=== PATIENT | female | born 1985 | race African-American/Black ===

== ENCOUNTER 2022-11-16 03:32 | Emergency (ER) | payer MEDICARE, MEDICAID ==
[~2022-11-16] VITALS: Ht 167.6 cm; Wt 87.0 kg
[2022-11-16] MEDS ORDERED: IBUPROFEN 600MG TABLET PO ONE (04:30)
[2022-11-16] MEDS ORDERED: IBUP-2029 MT (04:32)
[2022-11-16 04:43] VITALS: BP 129/67
== END 2022-11-16 05:48 | disposition home or self-care (01) ==
LOC: ER 03:32
DX: J02.9 Acute pharyngitis, unspecified (principal); F12.10 Cannabis abuse, uncomplicated; Z98.51 Tubal ligation status
CPT/HCPCS: 99282

== ENCOUNTER 2023-12-15 03:33 | Emergency (ER) | payer MEDICARE, MEDICAID ==
[~2023-12-15] VITALS: Ht 167.6 cm; Wt 82.0 kg
[~2023-12-15 03:33] MED LIST: IBUP-2029 MT
[2023-12-15 03:48] VITALS: BP 138/83; PULSE 77; RESP 18; TEMP 98.2; O2SAT 100
== END 2023-12-15 05:15 | disposition left against medical advice (07) ==
LOC: ER 04:21
DX: K08.89 Other specified disorders of teeth and supporting structures (principal); Z53.21 Procedure and treatment not carried out due to patient leaving prior to being seen by health care provider
CPT/HCPCS: 99281

== ENCOUNTER 2024-12-11 06:45 | Emergency (ER) | payer MEDICARE, MEDICAID ==
[~2024-12-11] VITALS: Ht 162.6 cm; Wt 77.0 kg
[2024-12-11 06:57] VITALS: O2SAT 100
[2024-12-11] MEDS ORDERED: CLIN-194 MT (07:21)
[2024-12-11] MEDS ORDERED: CHLO473M2 MT (07:21)
[2024-12-11 07:39] VITALS: BP 113/55; PULSE 67; RESP 18; TEMP 37; O2SAT 100
== END 2024-12-11 07:43 | disposition home or self-care (01) ==
LOC: ER 06:45
DX: K04.7 Periapical abscess without sinus (principal); K12.2 Cellulitis and abscess of mouth; F10.90 Alcohol use, unspecified, uncomplicated; F12.90 Cannabis use, unspecified, uncomplicated; Y90.9 Presence of alcohol in blood, level not specified
CPT/HCPCS: 99283; 99291

== ENCOUNTER 2025-05-17 01:05 | Emergency (ER) | payer MEDICARE, OTHER ==
[~2025-05-17] VITALS: Ht 167.6 cm; Wt 85.0 kg
[~2025-05-17 01:05] MED LIST changes: +IBUP-2030 MT
[2025-05-17 01:16] VITALS: O2SAT 99
[2025-05-17 01:19] VITALS: TEMP 37
[2025-05-17] MEDS: MAGNESIUM HYDROXIDE 400MG/5ML 30ML UDC PO ONE (02:22)
[2025-05-17 02:53] LABS: BASOPHILS % 0.8 % (0.0-2.0); EOSINOPHILS % 3.5 % (0.0-5.0); HEMATOCRIT. 36.8 % (36.0-48.0); HEMOGLOBIN. 12.1 g/dL (12.0-16.0); LYMPHOCYTES % 35.4 % (20.0-50.0); MEAN PLATELET VOLUME 7.0 fl (7.4-10.4); MONOCYTES % 5.8 % (2.0-8.0); NEUTROPHILS % 54.5 % (40.0-76.0); PLATELET 309 x1000/uL (130-400); RED BLOOD CELL COUNT 4.16 mill/uL (4.2-5.4); RED CELL DISTRIBUTION WIDTH 13.2 % (11.6-14.6)
[2025-05-17 02:58] LABS: CREATININE 0.8 mg/dL (0.6-1.0); UREA NITROGEN BLOOD 9 mg/dL (9-23)
[2025-05-17] MEDS ORDERED: MOM MT (04:13)
[2025-05-17 04:35] VITALS: BP 125/82; PULSE 75; RESP 14; O2SAT 99
== END 2025-05-17 05:04 | disposition home or self-care (01) ==
LOC: ER 01:05
DX: K59.00 Constipation, unspecified (principal); F12.90 Cannabis use, unspecified, uncomplicated; Z79.899 Other long term (current) drug therapy
CPT/HCPCS: 36415; 80048; 81025; 85025; 99283

== ENCOUNTER 2025-05-31 02:37 | Emergency (ER) | payer MEDICARE, OTHER ==
[~2025-05-31] VITALS: Ht 167.6 cm; Wt 83.0 kg
[~2025-05-31 02:37] MED LIST changes: +IBUP-1455 MT; -IBUP-2029 MT; +MOM MT
[2025-05-31 02:53] VITALS: O2SAT 100
[2025-05-31 03:39] LABS: BASOPHILS % 0.8 % (0.0-2.0); EOSINOPHILS % 2.5 % (0.0-5.0); HEMATOCRIT. 36.2 % (36.0-48.0); HEMOGLOBIN. 12.0 g/dL (12.0-16.0); LYMPHOCYTES % 36.6 % (20.0-50.0); MEAN PLATELET VOLUME 7.2 fl (7.4-10.4); MONOCYTES % 6.3 % (2.0-8.0); NEUTROPHILS % 53.8 % (40.0-76.0); PLATELET 335 x1000/uL (130-400); RED BLOOD CELL COUNT 4.10 mill/uL (4.2-5.4); RED CELL DISTRIBUTION WIDTH 13.6 % (11.6-14.6)
[2025-05-31 03:52] LABS: CREATININE 0.8 mg/dL (0.6-1.0); UREA NITROGEN BLOOD 10 mg/dL (9-23)
[2025-05-31 05:40] LABS: CLARITY URINE CLOUDY (CLEAR); COLOR URINE YELLOW (YELLOW); GLUCOSE URINE NEGATIVE (NEGATIVE); KETONES URINE NEGATIVE (NEGATIVE); LEUKOCYTE ESTERASE URINE 1+ (NEGATIVE); NITRITE URINE NEGATIVE (NEGATIVE); OCCULT BLOOD URINE NEGATIVE (NEGATIVE); PH URINE 5.5 (4.5-8.0); PROTEIN URINE NEGATIVE (NEGATIVE); SPECIFIC GRAVITY URINE 1.025 (1.005-1.030); UROBILINOGEN URINE 0.2 E.U./dL (0.2-1.0)
[2025-05-31 07:22] LABS: SQUAMOUS EPITHELIAL CELL URINE 3+ /lpf (RARE/1+)
[2025-05-31 07:23] LABS: RBC URINE 0-2 /hpf (0-2); WBC URINE 0-2 /hpf (0-2)
[2025-05-31 07:25] LABS: BACTERIA URINE 1+
[2025-05-31 07:30] VITALS: BP 107/72; PULSE 72; RESP 18; TEMP 37.1; O2SAT 100
== END 2025-05-31 08:49 | disposition still patient (30) ==
LOC: ER 02:37
DX: R10.32 Left lower quadrant pain (principal); F10.90 Alcohol use, unspecified, uncomplicated; F12.90 Cannabis use, unspecified, uncomplicated; Y90.9 Presence of alcohol in blood, level not specified
CPT/HCPCS: 36415; 76830; 76856; 80048; 81003; 81025; 85025; 99284